=== PATIENT | female | born 1995 | race Asian ===

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

== ENCOUNTER 2019-10-07 15:40 | Emergency (ER) | payer OTHER ==
[2019-10-07] MEDS ORDERED: NS 0.9% 1000 ML** 1,000 ML IV ONE (15:42)
--- NOTE | 2019-10-07 15:44 | ED ---
Syncope/Near Syncope - HPI Summary HPI Summary: This patient is a 24 y/o female presenting to [facility] via EMS for witnessed syncopal episode today. Patient reports she was walking into class when she bent down to orange picker something and upon standing up she syncopized. Denies head strike. EMS states professor saw the patient lose consciousness for about 20 seconds but denies seeing any seizure-like activity. Upon getting up patient notes she felt lightheaded. Per EMS, professor reported patient was lethargic after gaining consciousness. EMS notes patient has not been sleeping much and has two exams coming up. Patient additionally notes she has not been eating or drinking as normal due to recent stress from school. Denies chest pain or shortness of breath. She has had syncopal episodes in the past due to fatigue. Patient attends [employer] [facility] [employer]. Patient denies any PMHx. Denies tobacco, drug, or alcohol use. Home Medications Medication Instructions Recorded Confirmed Type Omeprazole CAP (NF) [Prilosec CAP* 10 mg PO DAILY 10/07/19 10/07/19 History 20 MG] - History Of Current Complaint Hx Obtained From: Patient, EMS Onset/Duration: Sudden Onset Timing: Seconds - 20 seconds Context: Witnessed, Loss Of Consciousness Activity At Onset: At Rest Associated Head Trauma: No Aggravating Factor(s): Nothing Alleviating Factor(s): Nothing Associated Signs And Symptoms: Lightheadedness Related History: Similar Episode/Dx as - in the past - Allergies/Home Medications Allergies/Adverse Reactions: Allergies Allergy/AdvReac Type Severity Reaction Status Date / Time MS Lactose Intolerance (GI) Allergy Abdominal Verified 10/07/19 18:38 [Lactose Intolerance (GI)] Pain [place] Nut Allergy Itching Uncoded 10/07/19 18:12 Home Medications: Home Medications Omeprazole CAP (NF) [Prilosec CAP* 20 MG] 10 mg PO DAILY 10/07/19 [History Confirmed 10/07/19] PMH/Surg Hx/FS Hx/Imm Hx Endocrine/Hematology History: Denies: Hx Diabetes, Hx Anemia Cardiovascular History: Denies: Hx Hypertension GI History: Reports: Hx Irritable Bowel - Surgical History Surgical History: None - Family History Known Family History: Negative: Cardiac Disease, Hypertension, Diabetes - Social History Occupation: Student - [employer] Alcohol Use: None Hx Substance Use: No Substance Use Type: Reports: None Hx Tobacco Use: No Smoking Status (MU): Never Smoked Tobacco Review of Systems Constitutional: Other - POSITIVE: decreased oral intake, lack of sleep Positive: Fatigue. Negative: Fever, Chills Negative: Chest Pain Negative: Shortness Of Breath Neurological/Mental Status: Other - POSITIVE: lightheadedness Positive: Syncope All Other Systems Reviewed And Are Negative: Yes Physical Exam - Summary Physical Exam Summary: VITAL SIGNS: Reviewed. GENERAL: Patient is a well-developed and nourished female who is lying comfortable in the stretcher. Patient is not in any acute respiratory distress. HEAD AND FACE: No signs of trauma. No ecchymosis, hematomas or skull depressions. No sinus tenderness. EYES: PERRLA, EOMI x 2, No injected conjunctiva, no nystagmus. EARS: Hearing grossly intact. Ear canals and tympanic membranes are within normal limits. MOUTH: Oropharynx within normal limits. NECK: Supple, trachea is midline, no adenopathy, no JVD, no carotid bruit, no c- spine tenderness, neck with full ROM. CHEST: Symmetric, no tenderness at palpation LUNGS: Clear to auscultation bilaterally. No wheezing or crackles. CVS: Regular rate and rhythm, S1 and S2 present, no murmurs or gallops appreciated. ABDOMEN: Soft, non-tender. No signs of distention. No rebound, no guarding, and no masses palpated. Bowel sounds are normal. EXTREMITIES: FROM in all major joints, no edema, no cyanosis or clubbing. NEURO: Alert and oriented x 3. No acute neurological deficits. Speech is normal and follows commands. SKIN: Dry and warm Triage Information Reviewed: Yes Vital Signs On Initial Exam: Initial Vitals Temp Pulse Resp BP Pulse Ox 97.8 F 64 16 101/61 99 10/07/19 15:47 10/07/19 15:47 10/07/19 15:47 10/07/19 15:47 10/07/19 15:47 Vital Signs Reviewed: Yes Procedures - Sedation Patient Received Moderate/Deep Sedation with Procedure: No Diagnostics - Laboratory Result Diagrams: 10/07/19 15:55 10/07/19 15:55 Lab Statement: Any lab studies that have been ordered have been reviewed, and results considered in the medical decision making process. - Radiology Chest XR Radiology Interpretation Completed By: Radiologist Summary of Radiographic Findings: IMPRESSION: No radiographic evidence of acute cardiopulmonary disease. Dr. Jeffries has reviewed this report. - EKG 15:56 Cardiac Rate: NL - at 66 bpm EKG Rhythm: Sinus Rhythm EKG Comparison: No Significant Change - similar to prior EKG on 11/18/16. Summary of EKG Findings: EKG at 1556 shows sinus rhythm at a rate of [address] elevations. Similar to prior EKG on 11/18/16. This EKG was interpreted and reviewed by ED physician. Re-Evaluation - Re-Evaluation First Eval Re-Evaluation Time: 19:00 Comment: Reviewed results with patient. She will be discharged home with follow up from PCP. Course/Dx Assessment/Plan: Patient is a 24 y/o female presenting to [facility] via EMS for witnessed syncopal episode today. Patient reports she was walking into class when she bent down to orange picker something and upon standing up she syncopized. Denies head strike. EMS states the professor saw the patient lose consciousness for about 20 seconds but denies seeing any seizure-like activity. Upon getting up patient notes she felt lightheaded. Per EMS, professor reported patient was lethargic after gaining consciousness. EMS notes patient has not been sleeping much and has two exams coming up. Patient additionally notes she has not been eating or drinking as normal due to recent stress from school. Denies chest pain or shortness of breath. She has had syncopal episodes in the past due to fatigue. Patient attends [employer]. Patient denies any PMHx. Denies tobacco, drug, or alcohol use. In the ED course the patient was placed in a desk monitor, IV access was obtained, IV fluids were started. Past medical records reviewed. Blood test w/o a significant abnormality except for potassium of 3.3. test is negative. EKG is a normal sinus rhythm without any ST elevation. CXR impression: No radiographic evidence of acute cardiopulmonary disease. At this point, I discussed all the findings and test results with the patient. Patient was instructed to return to the emergency room immediately if any of the symptoms return or worsen. Plan of care was discussed with the patient and the patient understands and agrees. All questions were answered at patient satisfaction. Patient understands and agrees. Neurological exam before discharge: Patient is alert and oriented x 3. No acute neurological deficits. Patient's vital signs are stable. Patient is to follow up with her PCP in the next 2 3 days. They understand and agree. The plan of care was discussed with the patient and the patient understands and agrees with the plan of care. All questions were answered at patient satisfaction. There were no further complaints or concerns. - Diagnoses Differential Diagnosis/HQI/PQRI: Positive: Metabolic Reaction, Seizure, Vasovagal Episode Provider Diagnoses: Vasovagal syncope Discharge ED - Sign-Out/Discharge Documenting (check all that apply): Patient Departure - Discharge home - Discharge Plan Condition: Stable Disposition: HOME Patient Education Materials: Syncope (ED) [facility]errals: [facility] [Outside] Additional Instructions: FOLLOW UP WITH YOUR PRIMARY CARE PROVIDER IN 2-3 DAYS. RETURN TO THE ED FOR ANY NEW OR WORSENING SYMPTOMS. - Billing Disposition and Condition Condition: STABLE Disposition: Home - Attestation Statements Document Initiated by Kj: Yes Documenting Scribe: Mary García Provider For Whom Rocíoibe is Documenting (Include Credential): Dave Jeffries MD Scribe Attestation: Mary Nguyễn scribed for Dave Jeffries MD on 10/11/19 at 1800. Scribe Documentation Reviewed: Yes Provider Attestation: The documentation as recorded by the Mary banda accurately reflects the service I personally performed and the decisions made by Dave negron MD Status of Scribe Document: Viewed
[2019-10-07 16:08] LABS: ABS Eosinophils 0.1 10^3/ul (0-0.6); ABS Lymphocytes 1.8 10^3/ul (1.0-4.8); ABS Monocytes 0.4 10^3/ul (0-0.8); ABS Neutrophils 4.2 10^3/ul (1.5-7.7); Eosinophil % 1.5 %; Hematocrit 40 % (35-47); Hemoglobin 13.7 g/dL (12.0-16.0); Lymphocyte % 27.9 %; Mean Corpuscular HGB Conc 34 g/dL (31-36); Mean Corpuscular Hemoglobin 29 pg (27-31); Mean Corpuscular Volume 87 fL (80-97); Mean Platelet Volume 7.9 fL (7.4-10.4); Platelet Count 205 10^3/uL (150-450); Red Blood Count 4.66 10^6 /uL (3.70-4.87); Red Cell Distribution Width 13 % (10-15); White Blood Count 6.5 10^3/uL (3.5-10.8)
[2019-10-07 16:26] LABS: HCG Pregnancy < 0.60 mIU/mL
[2019-10-07 16:42] LABS: ALT 7 U/L (7-52); AST 12 U/L (13-39); Albumin 4.6 g/dL (3.2-5.2); Albumin/Globulin Ratio 1.7 (1-3); Alkaline Phosphatase 59 U/L (34-104); Anion Gap 8 mmol/L (2-11); BUN/Creatinine Ratio 12.9 (8-20); Blood Urea Nitrogen 8 mg/dL (6-24); CO2 Carbon Dioxide 28 mmol/L (22-32); Calcium 9.6 mg/dL (8.6-10.3); Chloride 105 mmol/L (101-111); EGFR African American 145.6 (>60); EGFR Non-African American 120.4 (>60); Globulin 2.7 g/dL (2-4); Glucose 87 mg/dL (70-100); Potassium 3.3 mmol/L (3.5-5.0); Sodium 141 mmol/L (135-145); Total Protein 7.3 g/dL (6.4-8.9)
[2019-10-07] MEDS ORDERED: Potassium Chlor TAB* 20 MEQ TAB.ER PO ONE (16:45)
[2019-10-07 16:48] LABS: Alcohol < 10 mg/dL (<10)
[2019-10-07 17:01] LABS: TSH (Thyroid Stimulating Horm) 0.73 mcIU/mL (0.34-5.60)
[2019-10-07 19:05] VITALS: BP 104/67
[2019-10-07 19:19] LABS: Urine Appearance Clear; Urine Bilirubin Negative (Negative); Urine Blood Negative (Negative); Urine Color Straw; Urine Glucose Negative (Negative); Urine Ketones Negative (Negative); Urine Nitrite Negative (Negative); Urine Protein Negative (Negative); Urine Specific Gravity 1.005 (1.010-1.030); Urine Urobilinogen Negative (Negative)
[2019-10-07 19:36] LABS: Urine Benzodiazepine Screen None Detected (None Detect); Urine Opiates Screen None Detected (None Detect)
== END 2019-10-07 19:05 | disposition home or self-care (01) ==
LOC: ED 15:40
DX: R55 Syncope and collapse (principal); R53.83 Other fatigue; R42 Dizziness and giddiness; Z79.899 Other long term (current) drug therapy
CPT/HCPCS: 36415; 71046; 80053; 80307; 80320; 81003; 83735; 84443; 84702; 85025; 93005; 96360; 99283; A9270-GY; G0480